=== PATIENT | male | born 1955 | race Caucasian/White ===

== ENCOUNTER 2016-11-16 23:00 | Emergency (ER) ==
[2016-11-16] MEDS ORDERED: OFIRMEV 1000 MG/ISOTONIC SOLN 100 ML IV ONE (23:21)
[2016-11-16] MEDS ORDERED: NS 1,000 ML IV ONE (23:21)
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
[2016-11-16] MEDS ORDERED: BOOSTRIX VACCINE IM ONE (23:50)
[2016-11-17] MEDS ORDERED: NS 1,000 ML IV ONE (00:43)
[2016-11-17 00:55] VITALS: BP 145/85
== END 2016-11-17 01:32 | disposition short-term general hospital (02) ==
LOC: P.ED 23:00
DX: T22.30XA Burn of third degree of shoulder and upper limb, except wrist and hand, unspecified site, initial encounter (principal); T23.301A Burn of third degree of right hand, unspecified site, initial encounter; T31.0 Burns involving less than 10% of body surface; R47.81 Slurred speech; Z23 Encounter for immunization; X03.0XXA Exposure to flames in controlled fire, not in building or structure, initial encounter; W01.0XXA Fall on same level from slipping, tripping and stumbling without subsequent striking against object, initial encounter
CPT/HCPCS: 90715; J0131; J7030